=== PATIENT | female | born 1945 | race Caucasian/White ===

== ENCOUNTER 2016-08-13 12:59 | Emergency (ER) | payer OTHER ==
[2016-08-13 13:32] LABS: PARTIAL THROMBOPLASTIN TIME 25.8 SEC (23.5-35.8); PROTHROMBIN TIME 14.3 SEC (11.4-15.4)
--- NOTE | 2016-08-13 13:43 | ER Document Report ---
ED General - General Chief Complaint: S/S of Possible Stroke Stated Complaint: SEIZURE Time seen by provider: 12:55 Mode of Arrival: Medic Information source: Relative Notes: This is a 71-year-old female brought in to the ER by EMS with a suspected stroke /possible bleed. The patient does have a history of a CVA (December 2015), coronary artery disease (CABG), hypertension, diabetes. The patient was last seen well at approximately 11 AM. The patient's states that she acutely became unresponsive and confused on the phone. He states that he had called EMS and when EMS arrived, the patient's blood pressure was 220/158 and she was witnessed to have a generalized tonic-clonic seizure. Based upon the suspicion for subarachnoid hemorrhage, EMS had activated [facility] for transfer to [facility]. Patient's blood sugar in the field was 110 by EMS. The patient arrived to the emergency room before the helicopter. She was brought into the ER, she experienced a second generalized tonic seizure lasting approximately 2 minutes while in CAT scan. Patient's seizure started at 1259: She was given 2 mg of Versed nasally (via EMS ). - HPI Onset: Just prior to arrival Onset/Duration: Sudden Quality of pain: No pain Severity: None Pain Level: Denies Associated symptoms: denies: Chills, Fever Exacerbated by: Denies Relieved by: Denies Similar symptoms previously: Yes Recently seen / treated by doctor: No - Related Data Allergies/Adverse Reactions: Unable to Assess Allergy (Unverified 08/13/16 14:07) Past Medical History - General Information source: Relative - Patient's , Emergency Med Personnel - Social History Smoking Status: Never Smoker Cigarette use (# per day): No Chew tobacco use (# tins/day): No Frequency of alcohol use: None Drug Abuse: None Lives with: Family Family History: Reviewed & Not Pertinent Patient has suicidal ideation: No Patient has homicidal ideation: No - Past Medical History Cardiac Medical History: Reports: Hx Coronary Artery Disease, Hx Hypertension Pulmonary Medical History: Reports: None EENT Medical History: Reports: None Neurological Medical History: Reports: Hx Cerebrovascular Accident. Denies: Hx Seizures Endocrine Medical History: Reports: Hx Diabetes Mellitus Type 2 Renal/ Medical History: Reports: None Malignancy Medical History: Reports: None GI Medical History: Reports: None Musculoskeltal Medical History: Reports Hx Arthritis Skin Medical History: Reports None Psychiatric Medical History: Reports: None Traumatic Medical History: Reports: None Infectious Medical History: Reports: None Past Surgical History: Reports: Hx Coronary Artery Bypass Graft Review of Systems - Review of Systems Constitutional: denies: Chills, Fever EENT: No symptoms reported Cardiovascular: No symptoms reported Respiratory: No symptoms reported Gastrointestinal: No symptoms reported Genitourinary: No symptoms reported Female Genitourinary: No symptoms reported Musculoskeletal: No symptoms reported, See HPI Skin: No symptoms reported Hematologic/Lymphatic: No symptoms reported Neurological/Psychological: See HPI Physical Exam - Vital signs Vitals: Temp Pulse Resp BP Pulse Ox 97.5 F 84 19 138/82 H 99 08/13/16 13:27 08/13/16 13:27 08/13/16 13:27 08/13/16 13:27 08/13/16 13:27 Notes: Physical exam: GENERAL: 71-year-old female, unresponsive after having generalized tonic-clonic seizure. HEAD: Atraumatic, normocephalic. EYES: Pupils equal round and reactive to light, extraocular movements intact, sclera anicteric, conjunctiva are normal. ENT: TMs normal, nares patent, oropharynx clear without exudates. Moist mucous membranes. NECK: Normal range of motion, supple without lymphadenopathy or JVD. LUNGS: Breath sounds clear to auscultation bilaterally and equal. No wheezes rales or rhonchi. HEART: Regular rate and rhythm without murmurs, rubs or gallops. ABDOMEN: Soft, normoactive bowel sounds. No tenderness to palpation. No guarding, no rebound. No masses appreciated. EXTREMITIES: Normal range of motion, no pitting or edema. No clubbing or cyanosis. NEUROLOGICAL: Note: Patient initially had open eyes and would say "yes" and asked certain questions. She did have a generalized tonic-clonic seizure shortly after arrival in the ER. She is been postictal since that period of time. NIH: Limited because the patient is essentially obtunded at this point. SKIN: Warm, Dry, normal turgor, no rashes or lesions noted. Course - Re-evaluation Re-evalutation: 08/13/16 13:45 Note: By the 's accounts: At 11 AM, the patient had become aphasic and confused. When EMS arrived, the patient would only answer "yes" to any question. Shortly after EMS arrival, the patient did experience a generalized tonic-clonic seizure and was noted to be hypertensive (220/158). The seizure lasted approximately 1-2 minutes. EMS was concerned about an intracranial bleed and they activated [facility] transport in the field. When the patient was wheeled into the emergency room, she was nonverbal but her eyes were open and she appeared to respond. However she experienced a second seizure within 2-3 minutes after arrival in the ER while in CT scan. She was given 2 mg of Versed nasally at that time by EMS. [facility] arrived while the patient was in CT scan. After the CT scan, the patient was noted to be postictal. Her NIH score at this point of evaluation was extremely limited because of her postictal state. While the initial read on the CT scan showed no bleeding, A bleed could not be ruled out clinically because of the marked mental status change, new onset seizures and marked hypertension on EMS arrival. I have discussed the presentation as well as the results of the head CT with Dr. Muniz (ER physician at [facility]) who has accepted the patient for evaluation. It is unclear if the patient is having an acute stroke at this point and thrombolytics have been withheld because of the reasons above. One option is to continue observation, obtain a CTA of the brain with directed lysis if the CTA shows an acute thrombus. Alternatively, her symptoms could just be due to seizures and she could be postictal. In any event, she is protecting her airway and will be transported directly to [facility]. 08/13/16 19:52 - Vital Signs Vital signs: Temp Pulse Resp BP Pulse Ox 97.5 F 84 19 138/82 H 99 08/13/16 13:27 08/13/16 13:27 08/13/16 13:27 08/13/16 13:27 08/13/16 13:27 - Laboratory Result Diagrams: 08/13/16 13:17 08/13/16 13:17 Laboratory results interpreted by me: 08/13/16 08/13/16 08/13/16 13:06 13:17 13:17 MCHC 31.5 L RDW 15.2 H Sodium 145.7 H Carbon Dioxide 11 L Anion Gap 31 H Glucose 132 H POC Glucose 134 H Calcium 10.4 H AST 44 H Total Protein 9.1 H Critical Care Note - Critical Care Note Total time excluding time spent on procedures (mins): 50 Discharge - Discharge Clinical Impression: acute encephalopathy, hypertension, seizures Condition: Serious Disposition: [facility]
[2016-08-13 13:49] LABS: ABSOLUTE BASOPHILS # (AUTO) 0.1 10^3/uL (0.0-0.2); ABSOLUTE EOSINOPHILS # (AUTO) 0.2 10^3/uL (0.0-0.6); ABSOLUTE LYMPHOCYTES (AUTO) 4.1 10^3/uL (0.5-4.7); ABSOLUTE MONOCYTES (AUTO) 0.7 10^3/uL (0.1-1.4); ABSOLUTE NEUT (AUTO) 5.3 10^3/uL (1.7-8.2); ALANINE AMINOTRANSFERASE 21 U/L (9-52); ALBUMIN 4.7 g/dL (3.5-5.0); ALKALINE PHOSPHATASE 98 U/L (38-126); ASPARTATE AMINO TRANSFERASE 44 U/L (14-36); BASOPHILS % (AUTO) 0.6 % (0-2); BILIRUBIN,TOTAL 0.7 mg/dL (0.2-1.3); BLOOD UREA NITROGEN 14 mg/dL (7-20); CALCIUM 10.4 mg/dL (8.4-10.2); CARBON DIOXIDE 11 mmol/L (22-30); CHLORIDE 104 mmol/L (98-107); CREATINE KINASE 82 U/L (30-135); CREATININE RESULT 0.87 mg/dL (0.52-1.25); EOSINOPHILS % (AUTO) 2.4 % (0-6); GLUCOSE 132 mg/dL (75-110); HEMATOCRIT 41.9 % (36.0-47.0); HEMOGLOBIN 13.2 g/dL (12.0-15.5); HGB HCT DIFFERENCE -2.3; LYMPHOCYTES % (AUTO) 39.4 % (13-45); MEAN CORPUSCULAR HGB CONC 31.5 g/dL (32.0-36.0); MEAN CORPUSCULAR VOLUME 95 fl (80-97); POTASSIUM 3.9 mmol/L (3.6-5.0); RED CELL DISTRIBUTION WIDTH 15.2 % (11.5-14.0); SEGMENTED NEUTROPHILS % (AUTO) 50.6 % (42-78); SODIUM 145.7 mmol/L (137-145); TOTAL PROTEIN 9.1 g/dL (6.3-8.2); WHITE BLOOD COUNT 10.5 10^3/uL (4.0-10.5)
[2016-08-13 13:50] LABS: ANION GAP 31 (5-19)
[2016-08-13 14:01] LABS: CREATINE KINASE MB 0.81 ng/mL (<4.55)
[2016-08-13 14:02] LABS: TROPONIN I < 0.012 ng/mL
[2016-08-13 14:07] VITALS: BP 138/82
== END 2016-08-13 13:30 | disposition short-term general hospital (02) ==
LOC: ER 12:59
DX: R56.9 Unspecified convulsions (principal); G93.40 Encephalopathy, unspecified; R47.01 Aphasia; R41.0 Disorientation, unspecified; I10 Essential (primary) hypertension; I25.10 Atherosclerotic heart disease of native coronary artery without angina pectoris; E11.9 Type 2 diabetes mellitus without complications; Z86.73 Personal history of transient ischemic attack (TIA), and cerebral infarction without residual deficits; Z95.1 Presence of aortocoronary bypass graft
CPT/HCPCS: 36415; 70450; 71010; 80053; 82550; 82553; 82962; 84484; 85025; 85610; 85730; 99291